=== PATIENT | male | born 1950 | race Caucasian/White ===

== ENCOUNTER → 2020-11-29 | Outpatient (CLI) | payer MEDICARE ==
[~2020-11-29] MED LIST: ACET325T14 PO; ASPI-650 PO; DIGO125T85 PO; DILT120C11 PO; LEVO750T26 PO; LISI-167 PO; LISI-170 PO; MORP10CA10 PO; NICO-485 TD; OXYC-293 PO; OXYC-307 PO; OXYC10TA47 PO; PRED20TA PO; SIME80TA16 PO
== END | disposition home or self-care (01) ==
LOC: RAD 09:32
PROVIDERS: ATTEND Specialist
DX: M48.061 Spinal stenosis, lumbar region without neurogenic claudication (principal); M43.8X6 Other specified deforming dorsopathies, lumbar region; M47.816 Spondylosis without myelopathy or radiculopathy, lumbar region
CPT/HCPCS: 72114